=== PATIENT | female | born 1995 | race Caucasian/White ===

== ENCOUNTER 2020-10-26 14:24 | Outpatient (CLI) | payer BC, OTHER ==
[~2020-10-26 14:24] MED LIST: COLACE 100MG C100 MG PO; IBUPROFEN600 MG PO; IRON325 M1 PO; PNV-SELECT TAB1 EACH PO
[2020-10-26] MEDS ORDERED: MACROBID 100 M100 MG PO (17:25)
[2020-10-27 03:55] LABS: HEMOGLOBIN 7.8 gm/dl (12.3-15.3); RED BLOOD COUNT 3.38 M/UL (4.00-5.10)
[2020-10-27 04:09] LABS: BUN/CREATININE RATIO 6 (0-10)
== END 2020-10-27 09:27 | disposition home or self-care (01) ==
LOC: GENOP 14:24
PROVIDERS: Obstetrics & Gynecology
DX: O23.43 Unspecified infection of urinary tract in pregnancy, third trimester (principal); O99.891 Other specified diseases and conditions complicating pregnancy; M54.5 Low back pain; R50.9 Fever, unspecified; Z90.49 Acquired absence of other specified parts of digestive tract; Z79.899 Other long term (current) drug therapy; Z3A.31 31 weeks gestation of pregnancy
CPT/HCPCS: 36415; 59025; 80053; 81001; 82731; 85025; 96361; 96365; 96367; 96374; J2405; J2550; J7120

== ENCOUNTER → 2020-11-13 | Outpatient (CLI) | payer BC, OTHER ==
[~2020-11-13] VITALS: Ht 165.1 cm; Wt 68.5 kg
[~2020-11-13] MED LIST changes: +MACROBID 100 M100 MG PO; +PRENATAL VITAM1 EAC5 PO
== END ==
LOC: OPSV 10:00
DX: O99.019 Anemia complicating pregnancy, unspecified trimester (principal)
CPT/HCPCS: 96365; J1756

== ENCOUNTER → 2020-11-20 | Outpatient (CLI) | payer BC, OTHER ==
[~2020-11-20] VITALS: Ht 165.1 cm; Wt 68.5 kg
== END ==
LOC: OPSV 08:30
DX: O99.019 Anemia complicating pregnancy, unspecified trimester (principal)
CPT/HCPCS: 96365; J1756

== ENCOUNTER → 2020-12-08 | Outpatient (CLI) | payer BC, OTHER | LOC: OPSV 11:25 | DX: O99.019 Anemia complicating pregnancy, unspecified trimester (principal) | CPT/HCPCS: 96365; J1756 ==

== ENCOUNTER 2020-12-15 12:44 | Inpatient (IN) | payer BC, OTHER ==
[~2020-12-15] VITALS: Ht 165.1 cm; Wt 71.7 kg
[~2020-12-15 12:44] MED LIST changes: -PRENATAL VITAM1 EAC5 PO
[2020-12-15 13:39] LABS: HEMOGLOBIN 8.9 gm/dl (12.3-15.3); RED BLOOD COUNT 3.85 M/UL (4.00-5.10); WHITE BLOOD COUNT 7.2 K/UL (4.5-11.0)
[2020-12-15] MEDS ORDERED: PRENATAL VITAM1 EAC5 PO (18:28)
[2020-12-16] MEDS ORDERED: IBUPROFEN600 MG PO (17:04)
[2020-12-16] MEDS ORDERED: COLACE 100MG C100 MG PO (17:04)
[2020-12-17 06:01] LABS: HEMOGLOBIN 8.4 gm/dl (12.3-15.3)
== END 2020-12-17 19:34 | disposition home or self-care (01) | DRG 807 ==
LOC: GENOP 12:44 → OB 16:32
PROVIDERS: Obstetrics & Gynecology; ADMIT Obstetrics & Gynecology
PROC: 4A1HXCZ Monitoring of Products of Conception, Cardiac Rate, External Approach (ICD-10-PCS; 2020-12-15)
PROC: 10E0XZZ Delivery of Products of Conception, External Approach (ICD-10-PCS; principal; 2020-12-16)
DX: O76 Abnormality in fetal heart rate and rhythm complicating labor and delivery (principal); Z37.0 Single live birth; O99.02 Anemia complicating childbirth; Z3A.38 38 weeks gestation of pregnancy; D64.9 Anemia, unspecified; Z20.822 Contact with and (suspected) exposure to COVID-19
CPT/HCPCS: 36415; 51702; 81001; 82800; 85014; 85018; 85025; J2405; J2590; J2795; J3010; J7120; U0002